=== PATIENT | female | born 1950 | race Caucasian/White ===

== ENCOUNTER 2021-02-16 13:21 | Day surgery (SDC) | payer SELFPAY ==
[2021-02-15 17:08] VITALS: BMI 35.2
[2021-02-16] MEDS ORDERED: MIDAZOLAM HCL 2 MG/2 ML SINGLE DOSE VIAL ONE (16:56)
[2021-02-16] MEDS ORDERED: ALBUTEROL SO4 HFA INHALER IH ONE (17:17)
[2021-02-16] MEDS ORDERED: DEXAMETHASONE SOD PHOSPHATE 4 MG/1 ML VIAL ONE (17:28)
[2021-02-16] MEDS ORDERED: KETOROLAC TROMETHAMINE 30 MG/1 ML VIAL ONE (17:28)
[2021-02-16] MEDS ORDERED: ACETAMINOPHEN 325 MG TABLET (FP) PO PRN (17:39)
[2021-02-16] MEDS ORDERED: IBUPROFEN 400 MG TABLET (FP) PO PRN (17:39)
[2021-02-16 19:34] VITALS: BP 149/75; PULSE 75; TEMP 97.2
== END 2021-02-16 19:30 | disposition home or self-care (01) ==
LOC: JASU-SURG 13:21
PROVIDERS: ATTEND Specialist
PROC: 0UB98ZZ Excision of Uterus, Via Natural or Artificial Opening Endoscopic (ICD-10-PCS; principal; 2021-02-16 16:00)
PROC: 0UDB8ZX Extraction of Endometrium, Via Natural or Artificial Opening Endoscopic, Diagnostic (ICD-10-PCS; 2021-02-16 16:00)
DX: N95.0 Postmenopausal bleeding (principal); D25.0 Submucous leiomyoma of uterus
CPT/HCPCS: 88305-TC; 94760; C9803; U0003; U0005